=== PATIENT | female | born 1985 | race Caucasian/White ===

== ENCOUNTER 2019-04-20 19:08 | Emergency (ER) | payer OTHER ==
[2019-04-20 19:30] VITALS: BP 139/95
[2019-04-20] MEDS ORDERED: Amoxicillin/Clavulanate TAB* 875 MG PO ONE (19:36)
--- NOTE | 2019-04-20 19:36 | UC ---
Ear Complaint HPI - HPI Summary HPI Summary: 33-year-old female who has a history of seasonal allergies. She states she's had bilateral ear pain waxing and waning over the past couple of months. She states it's been worse this week but also with a sore throat. - History of Current Complaint Chief Complaint: UCGeneralIllness Stated Complaint: SORE THROAT/COUGH/CONGESTION Time Seen by Provider: 04/20/19 19:10 Hx Obtained From: Patient Hx Last Menstrual Period: has mirena ?: No Onset/Duration: Gradual Onset Severity Initially: Mild Severity Currently: Moderate Pain Intensity: 7 Aggravating Factors: Nothing Alleviating Factors: Nothing Associated Signs/Symptoms: Positive: URI Symptoms - Allergies/Home Medications Allergies/Adverse Reactions: Allergies Allergy/AdvReac Type Severity Reaction Status Date / Time hydrocodone [From Vicodin] Allergy Unknown Verified 04/20/19 19:30 Reaction Details Home Medications: Home Medications Albuterol HFA INHALER* [Ventolin HFA Inhaler*] 2 puff INH Q4H PRN 04/20/19 [ History Confirmed 04/20/19] Labetalol TAB* [Trandate TAB*] 0.5 tab PO DAILY 04/20/19 [History Confirmed ] PMH/Surg Hx/FS Hx/Imm Hx Previously Healthy: Yes - Surgical History Surgical History: Yes Surgery Procedure, Year, and Place: [facility] - Family History Known Family History: Positive: Hypertension, Respiratory Disease - Social History Alcohol Use: None Substance Use Type: None Smoking Status (MU): Never Smoked Tobacco Household Exposure Type: Cigarettes Review of Systems All Other Systems Reviewed And Are Negative: Yes ENT: Positive: Sore Throat, Ear Ache Respiratory: Positive: Cough - Dry nonproductive cough. Is Patient Immunocompromised?: No Physical Exam Triage Information Reviewed: Yes Appearance: Well-Appearing, No Pain Distress, Well-Nourished Vital Signs: Initial Vital Signs Temp 97.9 F 04/20/19 19:25 Pulse 86 04/20/19 19:25 Resp 17 04/20/19 19:25 BP 139/95 04/20/19 19:25 Pulse Ox 99 04/20/19 19:25 Vital Signs Reviewed: Yes Eyes: Positive: Conjunctiva Clear ENT: Positive: Hearing grossly normal, Pharyngeal erythema - Minimal tonsillar erythema., TM red - Left tympanic membrane is erythematous with poor land cordova and light reflex, right tympanic membrane is pearly-fernandez with good land cordova and light reflex., Tonsillar swelling, Uvula midline. Negative: Tonsillar exudate, Trismus, Hoarse voice Neck: Positive: Supple, Nontender, No Lymphadenopathy Respiratory: Positive: Lungs clear, Normal breath sounds, No respiratory distress, No accessory muscle use Cardiovascular: Positive: RRR, No Murmur, Pulses Normal, Brisk Capillary Refill Musculoskeletal Exam: Normal Neurological Exam: Normal Psychological Exam: Normal Skin Exam: Normal Ear Complaint Course/Dx - Course Course Of Treatment: The patient will be given 1 dose of Augmentin here and then to continue amoxicillin 875 mg by mouth twice a day 10 days. - Differential Dx/Diagnosis Provider Diagnosis: Otitis media, Pharyngitis Discharge - Sign-Out/Discharge Documenting (check all that apply): Patient Departure All imaging exams completed and their final reports reviewed: No Studies - Discharge Plan Condition: Fair Disposition: HOME Prescriptions: Amoxicillin PO (*) [Amoxicillin 875 MG (*)] 875 mg PO BID 10 Days #19 tab Patient Education Materials: Ear Infection (ED) Referrals: Jayashree Wilson PA [Primary Care Provider] - Additional Instructions: Tylenol every 4 hours for pain and may alternate with Motrin every 8 hours for pain. Follow-up with your primary care provider if no improvement in 3 or 4 days. - Billing Disposition and Condition Condition: FAIR Disposition: Home
== END 2019-04-20 19:44 | disposition home or self-care (01) ==
LOC: UCCORT 19:08
DX: H66.90 Otitis media, unspecified, unspecified ear (principal); J02.9 Acute pharyngitis, unspecified
CPT/HCPCS: 99212; A9270-GY; G0463